=== PATIENT | male | born 1970 | race Caucasian/White ===

== ENCOUNTER 2021-01-19 11:42 | Outpatient (CLI) | payer OTHER ==
[2021-01-20 13:08] LABS: SARS-CoV-2 PCR by NAA Not Detected (NotDetected)
== END 2021-01-19 11:43 | disposition home or self-care (01) ==
LOC: CSHLAB 11:42
PROVIDERS: ATTEND Internal Medicine Gastroenterology
DX: Z20.822 Contact with and (suspected) exposure to COVID-19 (principal); Z12.11 Encounter for screening for malignant neoplasm of colon; R13.10 Dysphagia, unspecified
CPT/HCPCS: 87635; U0003; U0005

== ENCOUNTER 2021-01-24 07:31 | Day surgery (SDC) | payer OTHER ==
[2021-01-21 11:26] VITALS: BMI 24.3
[2021-01-24] MEDS ORDERED: Lidocaine 1% MPF 2 ML VIAL ONE (08:01)
[2021-01-24] MEDS ORDERED: PROPOFOL 40 ML ONE (08:30)
[2021-01-24] MEDS ORDERED: Midazolam HCl 2 mg/2 ml Vial ONE (08:30)
[2021-01-24] MEDS ORDERED: Lidocaine 1% PF 5 ML VIAL ONE (08:30)
[2021-01-24] MEDS ORDERED: PROPOFOL 20 ML ONE (09:23)
== END 2021-01-24 10:35 | disposition home or self-care (01) ==
LOC: CSHSDC 07:31
PROVIDERS: ATTEND Internal Medicine Gastroenterology
PROC: 0D758ZZ Dilation of Esophagus, Via Natural or Artificial Opening Endoscopic (ICD-10-PCS; principal; 2021-01-24)
PROC: 0DB58ZZ Excision of Esophagus, Via Natural or Artificial Opening Endoscopic (ICD-10-PCS; principal; 2021-01-24)
DX: Z12.11 Encounter for screening for malignant neoplasm of colon (principal); K29.30 Chronic superficial gastritis without bleeding; D12.3 Benign neoplasm of transverse colon; K21.9 Gastro-esophageal reflux disease without esophagitis
CPT/HCPCS: 36416; 88305; J2250; J2704